=== PATIENT | female | born 1980 | race American Indian/Alaskan Native ===

== ENCOUNTER 2016-12-18 12:31 | Emergency (ER) | payer MEDICAID ==
[2016-12-18 13:19] LABS: Basophils % (Auto) 1.3 % (0.0-1.8); Eosinophils % (Auto) 2.3 % (0.0-4.3); Hematocrit 38.5 % (30.3-42.9); Hemoglobin 12.6 gm/dl (10.1-14.3); Mean Corpuscular HGB Conc 33 % (30-34); Mean Corpuscular Hemoglobin 27 pg (28-32); Mean Corpuscular Volume 84 fl (79-97); Platelet Count 159 K/mm3 (140-440); Red Blood Count 4.61 M/mm3 (3.65-5.03); Red Cell Distribution Width 14.9 % (13.2-15.2); White Blood Count 4.3 K/mm3 (4.5-11.0)
[2016-12-18 13:35] LABS: Anion Gap 15 mmol/L; BUN/Creatinine Ratio 11.42; Blood Urea Nitrogen 8 mg/dL (7-17); Calcium 8.8 mg/dL (8.4-10.2); Carbon Dioxide 24 mmol/L (22-30); Chloride 105.6 mmol/L (98-107); Glucose 92 mg/dL (65-100); Potassium 3.8 mmol/L (3.6-5.0); Sodium 141 mmol/L (137-145)
[2016-12-18] MEDS ORDERED: NORVASC PO ONE (22:50)
--- NOTE | 2016-12-18 23:01 | Emergency Department Report ---
HPI - General Chief Complaint: High BP Time Seen by Provider: 12/18/16 22:29 - HPI HPI: This is a 36-year-old -Chinese female presents to the emergency department with complaint of hypertension without a history of hypertension. The patient was at a physical exam on Saturday for a job and was told her blood pressure was elevated at 140/100. For this reason I told her that she needed to be seen at the emergency department. She did not go in immediately but comes in today for evaluation of this elevated blood pressure. The patient is a tobacco smoker and also admits to heavy caffeine intake. The patient also has been dealing with some stressors as she says that she lost her 4-month-old son recently. She denies any asked medical history. She does not have a primary care doctor. She denies any headache, vision change, slurred speech, chest pain, shortness of breath. ED Past Medical Hx - Past Medical History Previous Medical History?: No - Surgical History Past Surgical History?: Yes Additional Surgical History: x2 - Social History Smoking Status: Current Every Day Smoker Substance Use Type: None - Medications Home Medications: Home Medications Medication Instructions Recorded Confirmed Last Taken Type Cyclobenzaprine HCl [Flexeril] 10 mg PO Q8H PRN #21 tablet 11/17/13 Unknown Rx HYDROcodone/APAP 5-325 [Yantis 1 each PO Q6HR PRN #16 tablet 11/17/13 Unknown Rx 5-325 mg TAB] amLODIPine [Norvasc] 5 mg PO DAILY #30 tab 12/18/16 Unknown Rx ED Review of Systems ROS: Stated complaint: POSS HBP Other details as noted in HPI Comment: All other systems reviewed and negative Constitutional: denies: chills, fever Eyes: denies: eye pain, eye discharge, vision change ENT: denies: ear pain, throat pain Respiratory: denies: cough, shortness of breath, wheezing Cardiovascular: denies: chest pain, palpitations Gastrointestinal: denies: abdominal pain, nausea, diarrhea Genitourinary: denies: urgency, dysuria, discharge Musculoskeletal: denies: back pain, joint swelling, arthralgia Skin: denies: rash, lesions Neurological: denies: headache, weakness, paresthesias Physical Exam - Physical Exam Vital Signs: Vital Signs 12/18/16 12:51 Temperature 98.2 F Pulse Rate 92 H Respiratory 16 Rate Blood Pressure 153/114 O2 Sat by Pulse 100 Oximetry Physical Exam: GENERAL: The patient is well-developed well-nourished. HEENT: Normocephalic. Atraumatic. Extraocular motions are intact. Patient has moist mucous membranes. Pupils equal reactive to light bilaterally. NECK: Supple. Trachea is midline. CHEST/LUNGS: Clear to auscultation. There is no respiratory distress noted. HEART/CARDIOVASCULAR: Regular. There is no tachycardia. There is no gallop rub or murmur. ABDOMEN: Abdomen is soft, nontender. Patient has normal bowel sounds. There is no abdominal distention. SKIN: Warm and dry. NEURO: The patient is awake, alert, and oriented. The patient is cooperative. The patient has no focal neurologic deficits. The patient has normal speech. Cranial nerves II through XII grossly intact. MUSCULOSKELETAL: There is no tenderness or deformity. There is no limitation range of motion. There is no evidence of acute injury. ED Course Vital Signs 12/18/16 12:51 Temperature 98.2 F Pulse Rate 92 H Respiratory 16 Rate Blood Pressure 153/114 O2 Sat by Pulse 100 Oximetry ED Medical Decision Making - Lab Data Result diagrams: 12/18/16 13:07 12/18/16 13:07 - Medical Decision Making This is a 36-year-old female presents to the emergency department for evaluation of elevated blood pressure without history of diagnosed hypertension. Patient had blood pressure 140/100 a few days ago at her job physical. Today she has a blood pressure of 153/115. She is asymptomatic. It may be due to her tobacco abuse, caffeine intake or stress. However patient will be started on a low dose of Norvasc. She will try to make dietary changes. She will keep a blood pressure log encase the medication is not working or her blood pressure returns normal anginal longer needs the medication. She'll be given referrals for primary care. She will return to the ER with any worsening of her symptoms or any acute distress. Critical Care Time: No Critical care attestation.: If time is entered above; I have spent that time in minutes in the direct care of this critically ill patient, excluding procedure time. ED Disposition Clinical Impression: Hypertension Qualifiers: Hypertension type: essential hypertension Qualified Code(s): I10 - Essential ( primary) hypertension Disposition: DISCHARGED TO HOME OR SELFCARE Is pt being admited?: No Condition: Stable Instructions: Hypertension (ED) Additional Instructions: Please follow-up with a primary care doctor in the next few days. I have started you on a blood pressure medication called Norvasc at 5 mg to be taken once per day. Keep a blood pressure log. Try to stay away from foods that are high in salt and caffeinated products and try to quit smoking and this will help with your elevated blood pressure. Return to the emergency department with any worsening of your symptoms or any acute distress. Prescriptions: amLODIPine [Norvasc] 5 mg PO DAILY #30 tab Referrals: PRIMARY CARE, [Primary Care Provider] - 3-5 Days [facility] [Outside] - 3-5 Days [facility] [Outside] - 3-5 Days Time of Disposition: 23:17
[2016-12-18 23:48] VITALS: BP 148/102
== END 2016-12-18 23:40 | disposition home or self-care (01) ==
LOC: ED 12:31
DX: I10 Essential (primary) hypertension (principal); F17.210 Nicotine dependence, cigarettes, uncomplicated
CPT/HCPCS: 36415; 80048; 85025; 99283